=== PATIENT | female | born 1955 | race Two or more races ===

== ENCOUNTER 2018-11-04 06:35 | Inpatient (IN) | payer MEDICARE, MEDICAID ==
[~2018-11-04 06:35] MED LIST: ACYC800T PO; ALBUT2 NEB; BENA40TA67 PO; CALC-897 PO; DEXL60CA3 PO; DICL75TA5 PO; FERR1TAB44 PO; LEVO125T8 PO; LEVO750T21 PO; LORAZEPAM INJ 2 MG/ML VIAL ONE; OLME40TA12 PO; PRED10TA PO; PRED20TA GT; PRED50TA PO; PREG300C PO; RIVA10TA PO; SERT100T12 PO
[2018-11-04] MEDS ORDERED: ACETAMINOPHEN 325 MG TABLET ONE (07:38)
[2018-11-04] MEDS ORDERED: CELECOXIB 100 MG CAPSULE ONE (07:38)
[2018-11-04] MEDS ORDERED: TRANEXAMIC ACID 3,000 MG in SODIUM CHLORIDE IRRIG SOLUTION 70 ML IR ONE (08:00)
[2018-11-04] MEDS ORDERED: CLINDAMYCIN 900 MG/6 ML VIAL ONE (08:46)
[2018-11-04] MEDS ORDERED: HYDROMORPHONE INJ 2 MG/ML DISP.SYRIN ONE (08:46)
[2018-11-04] MEDS ORDERED: ROCURONIUM BROMIDE 50 MG/5 ML ONE (08:46)
[2018-11-04] MEDS ORDERED: BACITRACIN 50000 UNITS/VIAL ONE (09:36)
[2018-11-04] MEDS ORDERED: ALBUTEROL FS 2.5 MG/3 ML VIAL.NEB ONE (09:36)
[2018-11-04] MEDS ORDERED: ALBUTEROL 17GM INHALER ONE (09:37)
[2018-11-04] MEDS ORDERED: HYDROCORTISONE SOD SUCCINATE 100 MG/2 ML VIAL ONE (09:50)
[2018-11-04] MEDS ORDERED: DULCOLAX 10 MG/SUPP.RECT RC PRN (11:30)
[2018-11-04] MEDS ORDERED: SENOKOT 8.6 MG TABLET PO PRN (11:30)
[2018-11-04] MEDS ORDERED: COLACE 250 MG CAPSULE PO PRN (11:30)
[2018-11-04] MEDS ORDERED: IV LR 1000 ML 1,000 ML IV PRN (11:30)
[2018-11-04] MEDS ORDERED: AMBIEN 5 MG TABLET PO PRN (11:30)
[2018-11-04] MEDS ORDERED: HYDROMORPHONE 1 MG/1 ML DISP.SYRIN ONE (11:38)
--- NOTE | 2018-11-04 11:45 | NUR ---
RN RECEIVING NOTE PATIENT TRANSFERED FROM OR DUE TO LOW SATURATION AND RECOVERY FROM HIP ANTHROPLASTY. PATIENT ALERT BUT GROGGY. PAIN NOTED BUT REFUSED PAIN MEDICATION AT THIS TIME. BED IN LOW POSITION MD AWARE OF TRANSFER. CONTINUE TO MONITOR.
[2018-11-04] MEDS ORDERED: LEVO137T2 PO (12:35)
[2018-11-04] MEDS ORDERED: ALBU18HF2 INH (12:35)
[2018-11-04] MEDS ORDERED: OMEP40CA37 PO (12:35)
[2018-11-04] MEDS ORDERED: DULO30CA51 PO (12:35)
[2018-11-04] MEDS ORDERED: GABA-534 PO (12:35)
[2018-11-04] MEDS ORDERED: DICL100T85 PO (12:35)
[2018-11-04] MEDS ORDERED: CARV6.252 PO (12:35)
[2018-11-04] MEDS: LOSARTAN POTASSIUM 50 MG TABLET PO SCH (14:30)
[2018-11-04] MEDS ORDERED: CLINDAMYCIN 600 MG in IV NS 0.9% 50 ML IV SCH (15:00)
[2018-11-04 16:00] VITALS: BP 104/51
[2018-11-04] MEDS ORDERED: MAGNESIUM HYDROXIDE 30 ML UDC PO PRN (16:00)
[2018-11-04] MEDS ORDERED: CLONIDINE HCL 0.1 MG TABLET PO PRN (16:00)
[2018-11-04] MEDS ORDERED: TRAMADOL HCL 50 MG TABLET PO PRN (16:00)
[2018-11-04] MEDS ORDERED: HYDROMORPHONE 1 MG/1 ML DISP.SYRIN SQ PRN (16:00)
[2018-11-04] MEDS ORDERED: ALPRAZOLAM 0.25 MG TABLET PO PRN (16:00)
[2018-11-04] MEDS ORDERED: MAG HYDROX/AL HYDROX/SIMETH 30 ML UDC PO PRN (16:00)
[2018-11-04] MEDS ORDERED: diphenhydrAMINE HCL 25 MG CAPSULE PO PRN (16:00)
[2018-11-04] MEDS ORDERED: ONDANSETRON HCL/PF 4 MG/2 ML VIAL IV PRN (16:00)
[2018-11-04] MEDS: CLINDAMYCIN 600 MG in IV D5W 50 ML IV SCH ×2 (16:20→21:16)
[2018-11-04] MEDS ORDERED: DICLOFENAC SODIUM 50 MG TABLET.DR PO SCH (17:00)
[2018-11-04] MEDS: DOCUSATE SODIUM 100 MG CAPSULE PO SCH (17:12)
[2018-11-04] MEDS: DULOXETINE HCL 30 MG CAPSULE.DR PO SCH (17:12)
[2018-11-04] MEDS: GABAPENTIN 300 MG CAPSULE PO SCH (17:12)
[2018-11-04] MEDS: PREGABALIN 100 MG CAPSULE PO SCH (17:12)
[2018-11-04] MEDS: RIVAROXABAN 10 MG TABLET PO SCH (17:13)
[2018-11-04] MEDS ORDERED: IV NS 0.9% 1,000 ML BAG IV PRN (18:30)
[2018-11-04] MEDS ORDERED: ALBUTEROL FS 2.5 MG/0.5 ML VIAL.NEB NEB PRN (19:30)
--- NOTE | 2018-11-04 19:46 | NUR ---
RN CLOSING NOTE PATIENT IN BED, AWAKE ALERT AND ABLE TO COMMUNICATE. YAKUT SPEAKING. PAIN MANAGED WITH TYLENOL. FAMILY AT BEDSIDE. SATURATION REMAINS ABOVE 95% ENTIRE SHIFT. NO BLEEDING FROM SURGICAL SITE, BLOOD PRESSURE WNL. LABS TO BE DRAWN TOMORROW PER MD ORDERS. CONTINUE TO MONITOR PATIENT. IV PATENT INTACT AND RUNNING 75ML /HR PER MD ORDER. NO BOWEL MOVEMENT. MONITOR PAIN GENTLE HYDRATION.
[2018-11-04 20:00] VITALS: BP 113/53
--- NOTE | 2018-11-04 20:00 | NUR ---
RN INITIAL NOTE RECEIVED PT IN BED. S/P RT HIP ARTHROPLASTY, ABDUCTOR PILLOW. PATIENT A&Ox4, YORUBA SPEAKING. PAIN 5/10, PT STATED NO PAIN MEDS NEEDED. RT WRIST IV WITH FLUIDS INFUSING ORDERED. BED IN LOW LOCKED POSITION.CALL LIGHT WITH IN REACH. WILL CONTINUE TO MONITOR.
[2018-11-04 22:00] VITALS: BP 113/53
[2018-11-04] MEDS: TYLENOL 650 MG TABLET PO PRN (22:47)
[2018-11-05 04:00] VITALS: BP 111/56
[2018-11-05] MEDS: CLINDAMYCIN 600 MG in IV D5W 50 ML IV SCH (04:22)
[2018-11-05] MEDS: IV NS 0.9% 1,000 ML IV PRN ×2 (04:27→18:55)
--- NOTE | 2018-11-05 06:33 | NUR ---
RN CLOSING NOTE PATIENT IN BED, AWAKE ALERT AND ABLE TO COMMUNICATE. GREENLANDIC SPEAKING. PAIN MANAGED WITH TYLENOL. NO BLEEDING FROM SURGICAL SITE, IV PATENT INTACT AND RUNNING 75ML /HR PER MD ORDER. SAFETY PRECAUTIONS TAKEN. CALL LIGHT WITH IN REACH. WILL CONT TO MONITOR.
[2018-11-05] MEDS: TYLENOL 650 MG TABLET PO PRN ×2 (07:08→18:55)
[2018-11-05 07:11] LABS: BASOPHILS % (AUTO) 0.3 % (0.0-2.0); EOSINOPHILS % (AUTO) 0.6 % (0.0-6.0); HEMATOCRIT 32 % (33-45); HEMOGLOBIN 10.4 g/dL (11.5-14.8); LYMPHOCYTES # (AUTO) 0.9 /CMM (0.8-4.8); LYMPHOCYTES % (AUTO) 18.3 % (20.0-44.0); MEAN CORPUSCULAR HGB CONC 33 g/dl (31.0-36.0); MEAN CORPUSCULAR VOLUME 93 fL (82-100); MONOCYTES # (AUTO) 0.6 /CMM (0.1-1.30); MONOCYTES % (AUTO) 12.3 % (2.0-12.0); NEUTROPHILS # (AUTO) 3.6 /CMM (1.8-8.9); NEUTROPHILS % (AUTO) 68.5 % (43.0-81.0); PLATELET COUNT (AUTO) 247 /CMM (150-450); RED BLOOD CELL COUNT(AUTO) 3.41 MIL/uL (4.0-5.2); WHITE BLOOD COUNT (AUTO) 5.2 K/uL (4.3-11.0)
--- NOTE | 2018-11-05 07:30 | NUR ---
INITIAL: PATIENT IN BED, AWAKE ALERT AND ABLE TO COMMUNICATE. ENGLISH SPEAKING. PAIN MANAGED WITH TYLENOL GIVEN AT CHANGE OF SHIFT BY RN. NO BLEEDING FROM SURGICAL SITE, IV PATENT INTACT AND RUNNING 75ML /HR PER MD ORDER. SAFETY PRECAUTIONS TAKEN. CALL LIGHT WITH IN REACH. WILL CONT TO MONITOR.
[2018-11-05] MEDS: PANTOPRAZOLE 40 MG TABLET.DR PO SCH (07:50)
[2018-11-05] MEDS: LEVOTHYROXINE SODIUM 137 MCG TABLET PO SCH (07:50)
[2018-11-05 08:00] VITALS: BP 101/63
[2018-11-05] MEDS: GABAPENTIN 300 MG CAPSULE PO SCH ×2 (09:03→16:59)
[2018-11-05] MEDS: DULOXETINE HCL 30 MG CAPSULE.DR PO SCH ×2 (09:03→16:59)
[2018-11-05] MEDS: PREGABALIN 100 MG CAPSULE PO SCH ×2 (09:03→16:59)
[2018-11-05] MEDS: LOSARTAN POTASSIUM 50 MG TABLET PO SCH (09:05)
[2018-11-05] MEDS: CARVEDILOL 6.25 MG TABLET PO SCH (09:05)
[2018-11-05] MEDS: DOCUSATE SODIUM 100 MG CAPSULE PO SCH ×2 (09:22→16:59)
[2018-11-05 10:00] VITALS: BP 101/63
[2018-11-05 16:00] VITALS: BP 107/59
[2018-11-05] MEDS: RIVAROXABAN 10 MG TABLET PO SCH (16:59)
--- NOTE | 2018-11-05 18:15 | NUR ---
CLOSING PATIENT IN BED, AWAKE ALERT AND ABLE TO COMMUNICATE. KYRGYZ SPEAKING. PAIN MANAGED WITH SCHEDULED MEDICATIONS. NO BLEEDING FROM SURGICAL SITE, IV PATENT INTACT AND RUNNING 75ML /HR PER MD ORDER. PT EVAL DONE ABLE TO WEIGHT BEAR AND WALK TO DOOR WAY SAFETY PRECAUTIONS TAKEN. CALL LIGHT WITH IN REACH. WILL ENDORSE CARE TO PM RN.
[2018-11-05 20:00] VITALS: BP 105/60
--- NOTE | 2018-11-05 20:00 | NUR ---
[facility] RN NOTES RECEIVED PATIENT IN BED, AWAKE ALERT AND ABLE TO COMMUNICATE. UGANDAN SPEAKING ONLY. PATIENT COMPLAINS OF PAIN 4/10 BUT DOESN'T WANT ANY PAIN MEDICATION AT THIS TIME, NO SOB, NO DISCOMFORT NOTED AT THIS TIME. NO BLEEDING FROM SURGICAL SITE, IV PATENT INTACT AND RUNNING 75ML /HR PER MD ORDER. SAFETY PRECAUTIONS TAKEN. CALL LIGHT WITH IN REACH. WILL CONT TO MONITOR.
[2018-11-06 04:00] VITALS: BP 110/58
[2018-11-06 07:36] LABS: BASOPHILS % (AUTO) 0.4 % (0.0-2.0); EOSINOPHILS % (AUTO) 2.8 % (0.0-6.0); HEMATOCRIT 30 % (33-45); HEMOGLOBIN 9.9 g/dL (11.5-14.8); LYMPHOCYTES # (AUTO) 0.9 /CMM (0.8-4.8); LYMPHOCYTES % (AUTO) 14.2 % (20.0-44.0); MEAN CORPUSCULAR HGB CONC 33 g/dl (31.0-36.0); MEAN CORPUSCULAR VOLUME 93 fL (82-100); MONOCYTES # (AUTO) 0.6 /CMM (0.1-1.30); MONOCYTES % (AUTO) 10.3 % (2.0-12.0); NEUTROPHILS # (AUTO) 4.4 /CMM (1.8-8.9); NEUTROPHILS % (AUTO) 72.3 % (43.0-81.0); PLATELET COUNT (AUTO) 220 /CMM (150-450); RED BLOOD CELL COUNT(AUTO) 3.21 MIL/uL (4.0-5.2)
[2018-11-06 07:54] LABS: CALCIUM, SERUM 7.1 mg/dL (8.5-10.1); CREATININE 0.4 mg/dL (0.6-1.3); PHOSPHORUS 3.9 mg/dL (2.5-4.9); POTASSIUM 3.5 mmol/L (3.5-5.1)
[2018-11-06 08:00] VITALS: BP 121/42
[2018-11-06] MEDS: GABAPENTIN 300 MG CAPSULE PO SCH ×2 (09:11→17:42)
[2018-11-06] MEDS: DOCUSATE SODIUM 100 MG CAPSULE PO SCH ×2 (09:11→17:43)
[2018-11-06] MEDS: PREGABALIN 100 MG CAPSULE PO SCH ×2 (09:11→17:42)
[2018-11-06] MEDS: CARVEDILOL 6.25 MG TABLET PO SCH (09:12)
[2018-11-06] MEDS: DULOXETINE HCL 30 MG CAPSULE.DR PO SCH ×2 (09:12→17:42)
[2018-11-06] MEDS: PANTOPRAZOLE 40 MG TABLET.DR PO SCH (09:12)
[2018-11-06] MEDS: LEVOTHYROXINE SODIUM 137 MCG TABLET PO SCH (09:13)
[2018-11-06] MEDS: LOSARTAN POTASSIUM 50 MG TABLET PO SCH (09:13)
[2018-11-06 16:00] VITALS: BP 110/67
[2018-11-06] MEDS: RIVAROXABAN 10 MG TABLET PO SCH (17:44)
[2018-11-06] MEDS: TYLENOL 650 MG TABLET PO PRN (17:45)
[2018-11-06 20:00] VITALS: BP 92/53
--- NOTE | 2018-11-06 20:00 | NUR ---
RN INITIAL NOTES RECEIVED PATIENT IN BED, AWAKE ALERT AND ABLE TO COMMUNICATE. MAORI SPEAKING. NO C/O OF PAIN. NO BLEEDING FROM SURGICAL SITE, IV PATENT INTACT S/L. SAFETY PRECAUTIONS TAKEN. CALL LIGHT WITH IN REACH. PT TO BE TRANSFERRED TO ROOM 203. WILL CONT TO MONITOR.
--- NOTE | 2018-11-06 21:40 | NUR ---
BELT BUILDER HELPER NOTES TRANSFER REPORT WAS GIVEN TO GEM, PT LEFT [facility] FOR ROOM 203 VIE BED, ALL BELONGINGS WITH PT. PT LEFT FLOOR IN STABLE CONATION.
--- NOTE | 2018-11-06 21:45 | NUR ---
RN INITIAL NOTES: RECEIVED REPORT FROM OTILIA SANDERS, PT WILL BE TRANSFERRED FROM [facility]. PT S/P RIGHT HIP ARTHROPLASTY 11/04/18, DRESSING ON RIGHT HIP C/D/I, NO ACTIVE BLEEDING NOTED AROUND AREA, NO S/S OF INFECTION OR FOUL ODOR NOTED. ABDUCTION PILLOW IN PLACED. BILATERAL HEEL OFFLOADED ON ROLLED TOWELS. PT REFUSED SCD, EDUCATION PROVIDED TO PT. WHEN ASKED PT STATED SHE HAS RIGHT HIP PAIN 6/10, OFFERED PAIN MEDICATION BUT PT STATED SHE'S OKAY AT THIS TIME, AND DOESN'T NEED MEDICINE. PT REQUESTED USE OF DIAPER. PT ABLE TO MOVE AND WIGGLE RIGHT TOES, DENIES ANY NUMBNESS OR TINGLING SENSATION ON RLE. PEDAL PULSES PALPABLE AND INTACT, NO S/S OF IMPEDIMENT IN CIRCULATION NOTED. SAFETY PRECAUTIONS FOR FALL INITIATED, CALL LIGHT IN REACH, WILL CONTINUE MONITORING PT.
[2018-11-06 21:59] VITALS: BP 99/53
[2018-11-06 22:00] VITALS: BP 99/53
[2018-11-07 07:07] LABS: BASOPHILS % (AUTO) 0.9 % (0.0-2.0); EOSINOPHILS % (AUTO) 5.9 % (0.0-6.0); HEMATOCRIT 31 % (33-45); HEMOGLOBIN 10.4 g/dL (11.5-14.8); LYMPHOCYTES # (AUTO) 0.9 /CMM (0.8-4.8); LYMPHOCYTES % (AUTO) 16.2 % (20.0-44.0); MEAN CORPUSCULAR HGB CONC 34 g/dl (31.0-36.0); MEAN CORPUSCULAR VOLUME 92 fL (82-100); MONOCYTES # (AUTO) 0.6 /CMM (0.1-1.30); MONOCYTES % (AUTO) 10.3 % (2.0-12.0); NEUTROPHILS # (AUTO) 3.7 /CMM (1.8-8.9); NEUTROPHILS % (AUTO) 66.7 % (43.0-81.0); PLATELET COUNT (AUTO) 230 /CMM (150-450); RED BLOOD CELL COUNT(AUTO) 3.34 MIL/uL (4.0-5.2); WHITE BLOOD COUNT (AUTO) 5.5 K/uL (4.3-11.0)
--- NOTE | 2018-11-07 07:23 | NUR ---
RN CLOSING NOTES: PT IN BED, SLEEPING, DENIES ANY PAIN OR DISCOMFORT AT THIS TIME, IV ACCESS REMAINS PATENT AND FLUSHING WELL, ON HL. ABDUCTION PILLOW KEPT IN USE, BILATERAL HEELS REMAINS OFFLOADED ON ROLLED TOWELS. RIGHT HIP DRESSING REMAINS FREE FROM BLEEDING, INFECTION OR FOUL ODOR/DISCHARGES. PT DENIES ANY NUMBNESS TINGLING SENSATION ON RLE, PEDAL PULSE REMAINS PALPABLE, GOOD CAPILLARY REFILL NOTED. POSSIBLE DC TO [facility] TODAY. VS REMAINS STABLE, NEEDS ATTENDED. SAFETY PRECAUTIONS FOR FALL REMAINS ENGAGED, CALL LIGHT IN REACH, WILL ENDORSE TO DAY RN FOR ELLEN.
[2018-11-07 07:25] LABS: CALCIUM, SERUM 7.6 mg/dL (8.5-10.1); CREATININE 0.5 mg/dL (0.6-1.3); MAGNESIUM 2.2 mg/dL (1.8-2.4); PHOSPHORUS 4.4 mg/dL (2.5-4.9); POTASSIUM 3.7 mmol/L (3.5-5.1)
--- NOTE | 2018-11-07 07:48 | NUR ---
MS RN NOTES PATIENT RECEIVED RESTING INSIDE ROOM. SLEEPING, EASILY AROUSABLE THROUGH VERBAL AND TACTILE STIMULI. BREATHING EVEN AND UNLABORED. DENIES ANY PAIN OR DISCOMFORT AT THIS TIME. NO CHANGES IN LOC NOTED. IV INTACT AND PATENT. RIGHT HIP DRESSING INTACT, NO BLEEDING OR DRAINAGE NOTED. PATIENT DENIES NUMBNESS ON RLE, PEDAL PULSES PRESENT. WILL CONTINUE TO MONITOR. BED LOCKED AND IN LOW POSITION. BILATERAL UPPER SIDE RAILS UP AND LOCKED. CALL LIGHT WITHIN EASY REACH
[2018-11-07 08:09] VITALS: BP_SYST 126; BP_SYST 129; BP_DIAS 60; BP_DIAS 66
[2018-11-07] MEDS: DULOXETINE HCL 30 MG CAPSULE.DR PO SCH ×2 (08:39→16:05)
[2018-11-07] MEDS: PREGABALIN 100 MG CAPSULE PO SCH ×2 (08:39→16:05)
[2018-11-07] MEDS: CARVEDILOL 6.25 MG TABLET PO SCH (08:39)
[2018-11-07] MEDS: PANTOPRAZOLE 40 MG TABLET.DR PO SCH (08:39)
[2018-11-07] MEDS: LEVOTHYROXINE SODIUM 137 MCG TABLET PO SCH (08:39)
[2018-11-07] MEDS: DOCUSATE SODIUM 100 MG CAPSULE PO SCH ×2 (08:39→16:05)
[2018-11-07] MEDS: GABAPENTIN 300 MG CAPSULE PO SCH ×2 (08:39→16:05)
[2018-11-07] MEDS: LOSARTAN POTASSIUM 50 MG TABLET PO SCH (08:40)
--- NOTE | 2018-11-07 14:21 | NUR ---
MS RN NOTES PLACED CALL TO OFFICE OF DR. SPENCER ([phone]) AND SPOKE WITH STAS EDEN, LEFT MESSAGE FOR CASSIDY RIVERA REGARDING PATIENT CLEARANCE TO DISCHARGE TO SNF. AWAITING CALL BACK. WILL CONTINUE TO MONITOR
[2018-11-07 16:00] VITALS: BP 101/54
[2018-11-07] MEDS: RIVAROXABAN 10 MG TABLET PO SCH (16:06)
--- NOTE | 2018-11-07 18:52 | NUR ---
MS RN NOTES PATIENT RESTING INSIDE ROOM. AWAKE, ALERT AND ORIENTED, VERBALLY RESPONSIVE AND RESPONDS TO VERBAL AND TACTILE STIMULI. BREATHING EVEN AND UNLABORED. NO ACUTE DISTRESS NOTED. NO BOWEL MOVEMENT DURING THIS SHIFT. MOM GIVEN TO PATIENT AT 1605. PATIENT KEPT CLEAN, DRY AND COMFORTABLE. IV INTACT AND PATENT. DRESSING ON RIGHT HIP INTACT. WILL ENDORSE TO INCOMING SHIFT FOR ELLEN. BED LOCKED AND IN LOW POSITION. BILATERAL UPPER SIDE RAILS UP AND LOCKED. CALL LIGHT WITHIN EASY REACH
--- NOTE | 2018-11-07 19:35 | NUR ---
RN NOTES RECEIVED REPORT FROM [facility] MARILYN ANDINO. FOUND Pt AWAKE, RESTING IN BED, FAMILY VISITING AT BEDSIDE. Pt IS A/OX4, MAINLY KYRGYZ SPEAKING. NO S/S OF ACUTE DISTRESS OR SOB NOTED. RESPIRATIONS ARE EVEN AND UNLABORED. IV ACCESS ON R WRIST #18G, SL. SAFETY MEASURES IN PLACE. BED LOW, LOCKED, HOB ELEVATED, SIDE RAILS UP, CALL LIGHT AND BEDSIDE TABLE WITHIN REACH. WILL CONTINUE TO MONITOR Pt's CONDITION AND SAFETY THROUGHOUT THE NIGHT.
[2018-11-07 20:00] VITALS: BP 113/58
[2018-11-08] MEDS: LEVOTHYROXINE SODIUM 137 MCG TABLET PO SCH (06:31)
[2018-11-08] MEDS: PANTOPRAZOLE 40 MG TABLET.DR PO SCH (06:31)
--- NOTE | 2018-11-08 06:40 | NUR ---
RN CLOSING NOTES NO SIGNIFICANT CHANGES IN Pt's CONDITION. Pt REMAINS STABLE AT THIS TIME. Pt RESTING IN BED. RESPIRATIONS EVEN AND UNLABORED. NO S/S OF ACUTE DISTRESS OR SOB NOTED DURING THE NIGHT. ALL NEEDS MET AND ATTENDED TO. SAFETY MEASURES IN PLACE. BED LOW, LOCKED, HOB ELEVATED, SIDE RAILS UP, CALL LIGHT AND BEDSIDE TABLE WITHIN REACH. WILL ENDORSE TO DAYSHIFT RN FOR Pt's ELLEN.
[2018-11-08 08:00] VITALS: BP 121/65
--- NOTE | 2018-11-08 08:00 | NUR ---
MS RN AM NOTES: RECEIVED PT S/P RIGHT HIP ARTHROPLASTY 11/04/18, DRESSING ON RIGHT HIP C/D/I, NO ACTIVE BLEEDING NOTED AROUND AREA, NO S/S OF INFECTION OR FOUL ODOR NOTED. ABDUCTION PILLOW IN PLACED. BILATERAL HEEL OFFLOADED ON ROLLED TOWELS. PT REFUSED SCD, EDUCATION PROVIDED TO PT. PT ABLE TO MOVE AND WIGGLE RIGHT TOES, DENIES ANY NUMBNESS OR TINGLING SENSATION ON RLE. PEDAL PULSES PALPABLE AND INTACT, NO S/S OF IMPEDIMENT IN CIRCULATION NOTED. SAFETY PRECAUTIONS FOR FALL INITIATED, AMBULATED WITH P,T USING FWW 2X ALONG THE HALLWAY TOLERATED WELL.ENCOURAGED INCREASE FLUIDS.STILL WAITING FOR PT TO MAKE BM.PROVIDED PRUNE JUICE,DULCOLAX 10 MG PO TABS AND COLACE 100 MG PO.CALL LIGHT IN REACH, WILL CONTINUE MONITORING PT.
[2018-11-08] MEDS: DULOXETINE HCL 30 MG CAPSULE.DR PO SCH ×2 (08:43→17:12)
[2018-11-08] MEDS: GABAPENTIN 300 MG CAPSULE PO SCH ×2 (08:43→17:12)
[2018-11-08] MEDS: LOSARTAN POTASSIUM 50 MG TABLET PO SCH (08:44)
[2018-11-08] MEDS: DOCUSATE SODIUM 100 MG CAPSULE PO SCH ×2 (08:44→17:12)
[2018-11-08] MEDS: CARVEDILOL 6.25 MG TABLET PO SCH (08:44)
[2018-11-08] MEDS: PREGABALIN 100 MG CAPSULE PO SCH ×2 (08:45→17:13)
[2018-11-08] MEDS: TYLENOL 650 MG TABLET PO PRN (09:21)
[2018-11-08 10:19] LABS: BASOPHILS % (AUTO) 0.3 % (0.0-2.0); EOSINOPHILS % (AUTO) 8.3 % (0.0-6.0); HEMATOCRIT 32 % (33-45); HEMOGLOBIN 10.5 g/dL (11.5-14.8); LYMPHOCYTES # (AUTO) 0.9 /CMM (0.8-4.8); LYMPHOCYTES % (AUTO) 17.2 % (20.0-44.0); MEAN CORPUSCULAR HGB CONC 33 g/dl (31.0-36.0); MEAN CORPUSCULAR VOLUME 93 fL (82-100); MONOCYTES # (AUTO) 0.4 /CMM (0.1-1.30); MONOCYTES % (AUTO) 8.5 % (2.0-12.0); NEUTROPHILS # (AUTO) 3.4 /CMM (1.8-8.9); NEUTROPHILS % (AUTO) 65.7 % (43.0-81.0); PLATELET COUNT (AUTO) 309 /CMM (150-450); RED BLOOD CELL COUNT(AUTO) 3.44 MIL/uL (4.0-5.2); WHITE BLOOD COUNT (AUTO) 5.1 K/uL (4.3-11.0)
[2018-11-08 10:31] LABS: CALCIUM, SERUM 7.7 mg/dL (8.5-10.1); CREATININE 0.6 mg/dL (0.6-1.3); MAGNESIUM 2.1 mg/dL (1.8-2.4); PHOSPHORUS 4.3 mg/dL (2.5-4.9); POTASSIUM 3.8 mmol/L (3.5-5.1)
[2018-11-08] MEDS ORDERED: BISACODYL (5 MG) 5 MG TABLET.DR PO ONE (11:30)
[2018-11-08] MEDS ORDERED: MINERAL OIL 133 ML (PYXIS) 1 EA ENEMA RC ONE (11:30)
[2018-11-08] MEDS ORDERED: BISACODYL (5 MG) 5 MG TABLET.DR PO PRN (11:30)
--- NOTE | 2018-11-08 11:41 | NUR ---
ADMINISTERED DULCOLAX 10 MG PO TABS AND FLEET ENEMA VIA RECTUM. PT STATED THAT SHE JUST PASSES GAS SEVERAL TIMES.CHECKED FOR IMPACTION WHICH IS NEGATIVE. NO BM AT THIS TIME WILL MONITOR.ENCOURAGED INCREASE MOBILITY AND FLUID INTAKE.
[2018-11-08 16:00] VITALS: BP 99/55
--- NOTE | 2018-11-08 17:04 | NUR ---
PT AMBULATED ALONG THE HALLWAY WITH FWW WITH STANDBY ASSIST-TOLERATED WELL.
[2018-11-08] MEDS: RIVAROXABAN 10 MG TABLET PO SCH (17:12)
--- NOTE | 2018-11-08 19:00 | NUR ---
MS RN NOTE RECEIVED PT IN STABLE CONDITION A&O X4, FRISIAN SPEAKING, UNDERSTANDS ITALIAN. NO SIGNS OF SOB OF DISTRESS. NO COMPLAINTS OF PAIN. FAMILY AT BEDSIDE. R HIP SX SITE INTACT WITH NO SIGNS OF INFECTION. SAFETY MEASURES IN PLACE: BED LOW, LOCKED, UPPER RAILS UP, AND CALL LIGHT WITHIN REACH.
--- NOTE | 2018-11-08 19:11 | NUR ---
RESTING IN BED WITH FAMILY AT BEDSIDE-DENYING ANY PAIN OR DISTRESS.CALL LIGHT PLACED WITHIN REACH.
[2018-11-08 20:00] VITALS: BP 106/51
[2018-11-09] MEDS: TYLENOL 650 MG TABLET PO PRN ×2 (03:09→11:06)
--- NOTE | 2018-11-09 03:09 | NUR ---
MS RN NOTE PRN TYLENOL 650 MG PO GIVEN FOR MILD PAIN 10/30 LOCATED A R HIP. WILL CONT TO MONITOR.
--- NOTE | 2018-11-09 06:21 | NUR ---
MS RN NOTE PT IN STABLE CONDITION A&O X4, LIBYAN SPEAKING, UNDERSTANDS [place]. NO SIGNS OF SOB OF DISTRESS. NO COMPLAINTS OF PAIN. FAMILY AT BEDSIDE. R HIP SX SITE INTACT WITH NO SIGNS OF INFECTION. SAFETY MEASURES IN PLACE: BED LOW, LOCKED, UPPER RAILS UP, AND CALL LIGHT WITHIN REACH AND ENDORSE TO NEXT SHIFT FOR ELLEN.
[2018-11-09 08:00] VITALS: BP 110/70
--- NOTE | 2018-11-09 08:00 | NUR ---
MS RN AM NOTES: RECEIVED PT ALERT AND ORIENTED X4.VERBALIZED NEEDS.S/P RIGHT HIP ARTHROPLASTY 11/04/18, DRESSING ON RIGHT HIP C/D/I, NO ACTIVE BLEEDING NOTED AROUND AREA, NO S/S OF INFECTION OR FOUL ODOR NOTED. ABDUCTION PILLOW IN PLACE. BILATERAL HEEL OFFLOADED ON ROLLED TOWELS. PT REFUSED SCD, EDUCATION PROVIDED TO PT. PT ABLE TO MOVE AND WIGGLE RIGHT TOES, DENIES ANY NUMBNESS OR TINGLING SENSATION ON RLE. PEDAL PULSES PALPABLE AND INTACT, NO S/S OF IMPEDIMENT IN CIRCULATION NOTED. SAFETY PRECAUTIONS FOR FALL INITIATED, AMBULATED WITH P,T USING FWW 2X ALONG THE HALLWAY TOLERATED WELL.ENCOURAGED INCREASE FLUIDS.PT MADE LARGE SOFT BM.CALL LIGHT IN REACH, WILL CONTINUE MONITORING PT.
[2018-11-09 09:00] VITALS: BP 110/70
[2018-11-09] MEDS: LOSARTAN POTASSIUM 50 MG TABLET PO SCH (09:00)
[2018-11-09] MEDS: CARVEDILOL 6.25 MG TABLET PO SCH (09:00)
[2018-11-09] MEDS: PANTOPRAZOLE 40 MG TABLET.DR PO SCH (09:02)
[2018-11-09] MEDS: PREGABALIN 100 MG CAPSULE PO SCH (09:08)
[2018-11-09] MEDS: LEVOTHYROXINE SODIUM 137 MCG TABLET PO SCH (09:09)
[2018-11-09] MEDS: DULOXETINE HCL 30 MG CAPSULE.DR PO SCH (09:09)
[2018-11-09] MEDS: DOCUSATE SODIUM 100 MG CAPSULE PO SCH (09:09)
[2018-11-09] MEDS: GABAPENTIN 300 MG CAPSULE PO SCH (09:09)
[2018-11-09] MEDS ORDERED: BISA5TAB10 PO (11:12)
--- NOTE | 2018-11-09 15:44 | NUR ---
DISCHARGED PT TO [facility] VIA AMBULANCE WITH STABLE V/S.REPORT CALLED IN TO BRINDA OF [facility].IV H/L REMOVED TO RT WRIST WITH NO BLEEDING NOTED.DENIES ANY PAIN OR DISTRESS.
== END 2018-11-09 15:44 | DRG 470 ==
LOC: DS 06:35 → MEDSG1 11:40 → MEDSG2 11-06 21:43
PROVIDERS: ADMIT Internal Medicine; ATTEND Specialist
PROC: 0SR90JZ Replacement of Right Hip Joint with Synthetic Substitute, Open Approach (ICD-10-PCS; principal; 2018-11-04)
DX: M16.11 Unilateral primary osteoarthritis, right hip (principal); I10 Essential (primary) hypertension; E78.5 Hyperlipidemia, unspecified; J45.909 Unspecified asthma, uncomplicated; K21.9 Gastro-esophageal reflux disease without esophagitis; E03.9 Hypothyroidism, unspecified; E66.9 Obesity, unspecified; F41.9 Anxiety disorder, unspecified; G89.4 Chronic pain syndrome; G47.00 Insomnia, unspecified; Z96.653 Presence of artificial knee joint, bilateral; Z98.84 Bariatric surgery status; K59.00 Constipation, unspecified; F32.9 Major depressive disorder, single episode, unspecified
CPT/HCPCS: 36415; 80048-TC; 83735-TC; 84100-TC; 85025-TC; 87081-TC; 88305-TC; 88311-TC; 97110-TC; 97116-TC; 97530-TC; A4216; A4217; A6209; A6402; G0378; J1100; J1170; J1720; J2060; J2405; J2704; J2710; J3490; J7030; J7060; J7120